=== PATIENT | male | born 1960 | race Caucasian/White ===

== ENCOUNTER 2018-06-27 16:26 | Emergency (ER) | payer OTHER ==
[~2018-06-27] VITALS: Ht 195.6 cm; Wt 88.0 kg
[2018-06-27 16:34] VITALS: BP 142/77
[2018-06-27] MEDS ORDERED: ACETAMINOPHEN ES 500 MG TABLET PO ONE (17:30)
[2018-06-27] MEDS ORDERED: ACETAMINOPHEN ES 500 MG TABLET ONE (17:37)
== END 2018-06-27 19:16 | disposition home or self-care (01) ==
LOC: ER 16:30
DX: S80.12XA Contusion of left lower leg, initial encounter (principal); S09.8XXA Other specified injuries of head, initial encounter; M54.5 Low back pain; M25.561 Pain in right knee; V49.49XA Driver injured in collision with other motor vehicles in traffic accident, initial encounter; Y93.89 Activity, other specified; Y92.413 State road as the place of occurrence of the external cause; Y99.8 Other external cause status
CPT/HCPCS: 70450-TC; 72100-TC; 73564-TC; 73590-TC